=== PATIENT | female | born 2000 | race Caucasian/White ===

== ENCOUNTER 2023-12-06 13:44 | Emergency (ER) | payer OTHER, SELFPAY ==
[2023-12-06] VITALS (11 sets, daily range): BP systolic 114–142; BP diastolic 65–102; BMI 31.2
--- NOTE | 2023-12-06 14:45 | ED.MUSCINJ ---
HPI-Injury
<Vida Garcia INDUSTRIAL LOCOMOTIVE OPERATOR - Last Filed: 12/06/23 16:48>
General
Chief Complaint: Musculo-Skeletal Complaint
Source: patient
Exam Limitations: none
Time Seen by Provider: 12/06/23 14:34
Nursing documentation reviewed up to this point in time: agreed with
History of Present Illness-Injury
Initial Injury comments:
23-year-old female with history of left shoulder dislocations 4-5 times, last time was 2 years ago and it popped back in by itself. There was 1 time where she had to be moderately sedated for reduction. She states she was laying in her bed talking
on her phone when she lifted her left arm up above her head and it popped out. She does not want me to attempt reduction without anesthesia as she has tried maneuvers to get it back in to no avail.
Past History
<Vida Garcia, INDUSTRIAL LOCOMOTIVE OPERATOR - Last Filed: 12/06/23 16:48>
Past History
ED Past Medical History: Psychiatric (anxiety) and Other (recurrent L shoulder dislocations)
Social History
Tobacco: Non-smoker
Personal:
Living: with family
Employment: Student
Review of Systems
<Vida Garcia, INDUSTRIAL LOCOMOTIVE OPERATOR - Last Filed: 12/06/23 16:48>
Review of Systems
Allergies reviewed?: Yes
All Other Systems: ROS reviewed and negative except as documented in HPI and ROS
Musculoskeletal: Reports other (Left shoulder dislocation)
Skin: Reports no symptoms
Neurological: Denies weakness or numbness
Phy Exam
<Vida Garcia, INDUSTRIAL LOCOMOTIVE OPERATOR - Last Filed: 12/06/23 16:48>
Physical Exam
Physical Exam:
GENERAL: No acute distress. A&Ox3.
CONSTITUTIONAL: Afebrile.
EYES: PERRL, conjunctivae normal
ENMT: moist mucus membranes, Pharynx nl
RESPIRATORY: Regular respirations, nonlabored, lungs clear.
CARDIOVASCULAR: Regular rate and rhythm, no murmurs, no rubs.
GI: Soft, nontender
MUSCULOSKELETAL: Left shoulder unable to move. Distal n/v intact. Hand grasp 5/5. Well perfused.
SKIN: Warm, dry, pink
PSYCH: Normal mood and affect. Well kept, interactive and appropriate
NEUROLOGIC: Awake, alert and oriented. No focal neurological deficits
Injury Course
<Vida Garcia NP - Last Filed: 12/06/23 16:48>
Orders/Labs/Results
Orders:
Orders
12/06/23 13:54
Shoulder, Left, Trauma CR [CR Shoulder, Trauma - Left] Urgent
Comment:
Reason For Exam: shoulder pain
12/06/23 14:49
Morphine Sulfate 4 mg IV NOW STA
Ondansetron Injectable [Zofran] 4 mg IV NOW STA
12/06/23 15:02
Propofol [Diprivan] 20 ml .ROUTE .STK-MED
12/06/23 15:23
CR Shoulder - Left 1 View Urgent
Comment:
Reason For Exam: post reduction
Wholesale Parts Salesperson consulted with Physician
Wholesale Parts Salesperson consulted with physician?: Yes
Name of Physician Consulted: Jesse
<Bonny Molina MD - Last Filed: 12/06/23 14:49>
Orders/Labs/Results
Orders:
Orders
12/06/23 13:54
Shoulder, Left, Trauma CR [CR Shoulder, Trauma - Left] Urgent
Comment:
Reason For Exam: shoulder pain
12/06/23 14:49
Morphine Sulfate 4 mg IV NOW STA
Ondansetron Injectable [Zofran] 4 mg IV NOW STA
12/06/23 15:02
Propofol [Diprivan] 20 ml .ROUTE .STK-MED
12/06/23 15:23
CR Shoulder - Left 1 View Urgent
Comment:
Reason For Exam: post reduction
Procedures
<Vida Garcia NP - Last Filed: 12/06/23 16:48>
Moderate Sedation
ASA Risk Score: Class I
Chart and allergies reviewed: Yes
Consent for anesthesia obtained: Yes
Time out completed (validating right patient & procedure): Yes
Moderate Sedation Start Time(when first medication is given): 15:16
History of difficult intubation: No
Airway free of obstruction: Yes
Patient has a gag reflex: Yes
Patient is able to open mouth: Yes
Patient has no dentures: Yes
Patient has no loose teeth: Yes
Medication administered by Provider during Moderate Sedation: IV Propofol (mg) (120)
Total dose administered: 120
Time drug administered: 15:18
Moderate Sedation Procedure End Time: 15:30
Splinting/Sling Placement
Left Arm:
Pre-splint extermity exam: good alignment
Type of sling: sling fitted
Joint/Fracture Reduction
Left Shoulder:
Indication for procedure:: Dislocation
Procedure completed by: Katie Garcia NP
Consent form signed: Yes
Joint reduced: with anesthesia sedation
Anesthesia/sedation: Moderate sedation
Injury was: closed
Further treatement: needs re-check only
Post reduction exam: stable
Capillary Refill: normal
Normal distal neurovascular exam?: Yes
<Vida Garcia INDUSTRIAL LOCOMOTIVE OPERATOR - Last Filed: 12/06/23 16:48>
MDM/Problems Addressed
Differential Diagnosis Includes:
shoulder dislocation/fracture
MDM/Problems Addressed:
23-year-old female with history of left shoulder dislocations 4-5 times, last time was 2 years ago and it popped back in by itself. There was 1 time where she had to be moderately sedated for reduction. She states she was laying in her bed talking
on her phone when she lifted her left arm up above her head and it popped out. She does not want me to attempt reduction without anesthesia as she has tried maneuvers to get it back in to no avail. Denies numbness or tingling.
Distal n/v intact.
Xray showing anterior L shoulder dislocation.
Case discussed with Dr. Molina who examined the patient.
4:00 PM:
Consent for procedure signed and scanned into chart
Shoulder reduced with moderate sedation, no complications, patient is now awake alert and oriented, sling is on. Distal neurovascular intact
Referred to orthopedics
<Vida Garcia NP - Last Filed: 12/06/23 16:48>
*Critical Care Note
Total Time (30-74mins, 75-104mins- exclusive of procedures): Not Applicable
ED Attending Note
<Vida Garcia NP - Last Filed: 12/06/23 16:48>
-
Portions of this chart may have been created with voice recognition software.� Occasional wrong word or��sound alike� substitutions may have occurred due to the inherent limitations of voice recognition software.
<Bonny Molina MD - Last Filed: 12/06/23 14:49>
ED Attending Note
Patient seen and examined by attending physician: Yes
ED Attending Note:
23-year-old female with a history of shoulder dislocations in the past states that she was in bed, raised her left arm overhead and dislocated her left shoulder. She complains of pain in this area, no trauma or impact, no numbness or tingling, no
other complaints. On exam, pulses intact, limited range of motion due to obvious left shoulder dislocation on exam, sensation intact, motor 5 out of 5. In presence of patient and her fianc�, risk and benefits of sedation and meds discussed with
her, she is agreeable to procedure and procedural sedation, consent signed.
Discharge Plan
Departure
Patient Disposition: Home (Routine Discharge)
Date of Disposition: 12/06/23
Time of Disposition: 16:05
Patient with high blood pressure during this ER visit?: No
Condition: Good
Discharge Problem:
Anterior dislocation of left shoulder
Instructions: Shoulder Dislocation (DC), Moderate Sedation in Adults (DC), Using Cold for Pain
Prescriptions:
No Action
fluoxetine 40 mg Capsule
40 mg PO DAILY
norethindrone (contraceptive) [Jencycla] 0.35 mg Tablet
0.35 mg PO DAILY
Referrals:
Dominic Moe MD [Active] - Call in 1-3 days for appt
Activity Restrictions/Additional Instructions:
As we discussed, wear the sling when up and around until further instructed by the orthopedic doctor. You may remove it for bathing, avoid hyperextension movements of the shoulder.
Tylenol or ibuprofen as needed for pain.
Interventions
Interventions:
*Risk Screen - Suicide Last Done: 12/06/23 13:49
*Neglect/Abuse Screening Last Done: 12/06/23 13:49
ED- Fall Risk Assessment Last Done: 12/06/23 13:49
ED-Musculoskeletal Assessment Last Done: 12/06/23 15:00
Discharge Date and Time
Print Language: MOHAWK
[2023-12-06] MEDS: ZOFRAN 4 MG IV (15:04)
[2023-12-06] MEDS: MORPHINE SULFATE 4 MG IV (15:05)
== END 2023-12-06 16:52 | disposition home or self-care (01) ==
LOC: EMR 13:44
PROVIDERS: EMERGENCY PHYSICIAN Emergency Medicine
DX: S43.015A Anterior dislocation of left humerus, initial encounter (principal); X58.XXXA Exposure to other specified factors, initial encounter; F41.9 Anxiety disorder, unspecified
CPT/HCPCS: 99283; 23650; 99152; 73020; 73030

== ENCOUNTER 2024-09-30 10:09 | Emergency (ER) | payer OTHER, SELFPAY ==
[2024-09-30] VITALS (9 sets, daily range): BP systolic 108–134; BP diastolic 66–97; BMI 31.0
--- NOTE | 2024-09-30 10:23 | ED.GENMED ---
History of Present Illness
General
Chief Complaint: Musculo-Skeletal Complaint
Time Seen by Provider: 09/30/24 10:14
History of Present Illness
History of Present Illness:
TIME OF INITIAL ENCOUNTER: 10:20 AM
HPI: The patient has history of recurrent left shoulder dislocations. She was sleeping on her 'stomach' with her left upper extremity under her head and awoke with the left shoulder dislocated. She tried placing back in herself but was unable to.
She has required procedural sedation for shoulder reduction in the past. She is certain that her shoulder is dislocated. She denies any other symptoms or concerns other than constipation.
EXAM:
GENERAL: Well appearing in no distress
HEENT: Moist oral mucosa
NEUROLOGIC: Excellent strength all extremities, no obvious coordination deficits
PSYCHIATRIC: Appropriate mental status, normal insight and judgement
EXTREMITIES: There is markedly decreased active range of motion at the left shoulder, there is absence of the humeral head in the glenoid at the left shoulder
SKIN: No rash, no lesions
NUMBER AND COMPLEXITY OF PROBLEMS ADDRESSED AT THE ENCOUNTER
� Chronic conditions affecting care: Recurrent left shoulder dislocation, IBS
� Acute Exacerbation and/or Progression of Chronic Illness: This is an acute but recurring problem
� Differential Diagnosis includes: Left shoulder dislocation, Hill-Sachs deformity, Bankart lesion
AMOUNT AND/OR COMPLEXITY OF DATA TO BE REVIEWED AND ANALYZED
� I performed an independent evaluation of and my interpretation is:
EKG:
CT:
X-rays: I personally reviewed x-ray and see anterior/inferior dislocation of the left shoulder
Laboratory Studies:
Other:
� Review of other/old records: When she had procedural sedation for shoulder reduction in 2023, the patient had 120 mg of propofol
� Clinical information was obtained by an independent historian: I spoke to significant other at bedside
� Prescriptions/Medications Considered but not given:
� Further testing considered but not performed:
RISK OF COMPLICATIONS AND/OR MORBIDITY OR MORTALITY OF PATIENT MANAGEMENT
� Social determinants of health affecting care: Lives at home
� Discussion with other providers:
� Escalation of care including admission/observation vs risk of discharge considered: The patient refuses attempt without sedation. Will sedate with propofol and perform reduction.
ANY OTHER UPDATES:
The patient was given 30 mg of propofol x 3 which to facilitate very easy reduction. She was placed in a sling and postreduction x-ray confirms appropriate reduction. She states she will follow-up with an orthopedist when she moves to [place].
Past History
Past History
ED Past Medical History: Psychiatric (anxiety) and Other (recurrent L shoulder dislocations)
Social History
Tobacco: Non-smoker
Personal:
Living: with family
Employment: Student
Phy Exam
Physical Exam
Physical Exam:
See HPI
Course
Orders/Labs/Results
Orders:
Orders
09/30/24 10:27
CR Shoulder - Left Min 2 View* Urgent
Comment:
Reason For Exam: eval for dislocation
09/30/24 10:28
IV Insert/Care/Rem.- Treatment PRN
09/30/24 11:03
Propofol [Diprivan] 20 ml .ROUTE .STK-MED
09/30/24 11:31
Famotidine [Pepcid] 20 mg .ROUTE .STK-MED ONE
Famotidine [Pepcid] 20 mg IV NOW STA
Ondansetron Injectable [Zofran] 4 mg .ROUTE .STK-MED ONE
Ondansetron Injectable [Zofran] 4 mg IV NOW STA
09/30/24 11:41
Shoulder, Left 1 View CR [CR Shoulder - Left 1 View] Urgent
Comment:
Reason For Exam: Post reduction
Comment: Portable
Vital Signs
Initial and Last Documented VS:
Initial Vital Signs
Temp Pulse Resp BP Pulse Ox
37.2 C 112 16 134/97 98
09/30/24 10:10 09/30/24 10:10 09/30/24 10:10 09/30/24 10:10 09/30/24 10:10
Last Documented Vital Signs
Temp Pulse Resp BP Pulse Ox
36.9 C 77 16 115/72 100
09/30/24 11:35 09/30/24 12:45 09/30/24 12:45 09/30/24 12:45 09/30/24 12:45
Procedures
Moderate Sedation
ASA Risk Score: Class I
Chart and allergies reviewed: Yes
Consent for anesthesia obtained: Yes
Time out completed (validating right patient & procedure): Yes
Moderate Sedation Start Time(when first medication is given): 11:35
History of difficult intubation: No
Airway free of obstruction: Yes
Patient has a gag reflex: Yes
Patient is able to open mouth: Yes
Patient has no dentures: Yes
Patient has no loose teeth: Yes
Medication administered by Provider during Moderate Sedation: IV Propofol (mg)
Total dose administered: 90
Time drug administered: 11:35
Moderate Sedation Procedure End Time: 11:45
Joint/Fracture Reduction
Left Shoulder:
Indication for procedure:: Anterior dislocation
Procedure completed by: VaDr. Rawls
Consent form signed: Yes
If no, reason: Emergency procedure
Joint reduced: with anesthesia sedation
Anesthesia/sedation: Moderate sedation
Injury was: closed
Further treatement: needs re-check only
Post reduction exam: stable
Capillary Refill: normal
Normal distal neurovascular exam?: Yes
Additional information:
The patient is given propofol and shoulder reduction was performed very easily in 1 attempt.
*Critical Care Note
Total Time (30-74mins, 75-104mins- exclusive of procedures): Not Applicable
ED Attending Note
-
Portions of this chart may have been created with voice recognition software.� Occasional wrong word or��sound alike� substitutions may have occurred due to the inherent limitations of voice recognition software.
Discharge Plan
Departure
Patient Disposition: Home (Routine Discharge)
Date of Disposition: 09/30/24
Time of Disposition: 11:48
Patient with high blood pressure during this ER visit?: Yes
Discharge Problem:
Anterior shoulder dislocation
Instructions: Shoulder Dislocation (DC), BLOOD PRESSURE
Prescriptions:
No Action
fluoxetine 40 mg Capsule
40 mg PO DAILY
norethindrone (contraceptive) [Jencycla] 0.35 mg Tablet
0.35 mg PO DAILY
Referrals:
Dominic Moe MD [Active] - Follow up in 2-3 days
UNKNOWN - PT NOT,INTERVIEWE [Unknown Provider] -
Activity Restrictions/Additional Instructions:
We sedated you with propofol today. No driving today or making any major decisions. The post reduction x-ray shows that the shoulder is back into position. I recommend that you follow-up with the orthopedist. Use the sling for comfort. You can
either follow-up with the orthopedist In [place] or you could follow-up with Dr. Moe locally.
Interventions
Interventions:
*Risk Screen - Suicide Last Done: 09/30/24 10:21
*General Assessment Last Done: 09/30/24 10:21
*Nursing Disposition Last Done: 09/30/24 13:03
ED-Musculoskeletal Assessment Last Done: 09/30/24 10:21
Discharge Date and Time
Discharge Date/Time: 09/30/24 13:04
Print Language: ANGOLAN
[2024-09-30] MEDS: PEPCID 20 MG IV (11:32)
[2024-09-30] MEDS: ZOFRAN 4 MG IV (11:32)
== END 2024-09-30 13:04 | disposition home or self-care (01) ==
LOC: EMR 10:09
PROVIDERS: EMERGENCY PHYSICIAN Emergency Medicine
DX: S43.015A Anterior dislocation of left humerus, initial encounter (principal); X58.XXXA Exposure to other specified factors, initial encounter
CPT/HCPCS: 96374; 96375; 23650; 99152; 99285; 73020; 73030